=== PATIENT | male | born 1985 | race Caucasian/White ===

== ENCOUNTER 2024-03-14 10:43 | Outpatient (REF) | payer OTHER, SELFPAY ==
[2024-03-14 12:31] LABS: ALT 33 U/L (16-63); AST 11 U/L (15-37); Albumin 4.6 g/dL (3.4-5.0); Alkaline Phosphatase 115 U/L (46-116); Anion Gap 9.2 mmol/L (3-11); BUN 16 mg/dL (7-18); CO2 31.8 mmol/L (21.0-32.0); Calcium 10.1 mg/dL (8.5-10.1); Calculated LDL 139 mg/dL (<100); Chloride 102 mmol/L (98-107); Cholesterol 228 mg/dL (<200); Glucose 96 mg/dL (74-106); HDL Cholesterol 78 mg/dL (40-60); Potassium 4.7 mmol/L (3.5-5.1); Sodium 143 mmol/L (136-145); Triglyceride 58 mg/dL (<150)
== END 2024-03-14 10:44 | disposition home or self-care (01) ==
LOC: NCHCN 10:43
PROVIDERS: PCP Nurse Practitioner Family; Visit Provider Nurse Practitioner Family
DX: Z13.220 Encounter for screening for lipoid disorders (principal)
CPT/HCPCS: 80053; 80061